=== PATIENT | female | born 1940 | race Caucasian/White ===

== ENCOUNTER 2023-12-31 04:28 | Day surgery (SDC) | payer OTHER, MEDICARE ==
[2023-12-27 18:56] VITALS: BMI 25.2
[2023-12-31] MEDS ORDERED: PROPOFOL 20 ML ONE (07:21)
[2023-12-31] MEDS ORDERED: KETOROLAC TROMETHAMINE 30 MG/1 ML VIAL ONE (07:22)
[2023-12-31] MEDS ORDERED: ONDANSETRON 4 MG/2 ML VIAL ONE (07:22)
[2023-12-31] MEDS ORDERED: DEXTROSE 5%-0.45% SALINE 1,000 ML IV SCH (07:45)
[2023-12-31] MEDS: ceFAZolin SODIUM 1 GM VIAL IVPB ONE (08:00)
[2023-12-31] MEDS: IOHEXOL 300 MG/ML INFUS..BTL IV ONE (08:25)
[2023-12-31] MEDS ORDERED: FENTANYL CITRATE/PF 50 MCG/ML VIAL ONE (08:48)
[2023-12-31] MEDS ORDERED: LACTATED RINGERS SOLUTION 1,000 ML IV SCH (09:00)
[2023-12-31 09:53] VITALS: RESP 20
[2023-12-31 09:54] LABS: HEMATOCRIT 25.9 % (32.4-45.2); HEMOGLOBIN 8.4 GM/dL (10.7-15.3); MCH 31.7 pg (25.7-33.7); MCHC 32.5 g/dl (32.0-36.0); MEAN CELL VOLUME 97.5 fl (80-96); MEAN PLT VOLUME 7.7 fl (7.5-11.1); PLATELET COUNT 221 10^3/uL (134-434); RBC 2.66 M/mm3 (3.60-5.2); RDW 13.4 % (11.6-15.6)
[2023-12-31 10:33] LABS: ANISOCYTOSIS 1+; MACROCYTOSIS 0
[2023-12-31 10:54] LABS: WHITE BLOOD COUNT 60.6 K/mm3 (4.0-10.0)
[2023-12-31 11:28] VITALS: BP 174/77; PULSE 79; TEMP 98.3
== END 2023-12-31 12:15 | disposition home or self-care (01) ==
LOC: JASU-SURG 04:28
PROVIDERS: ATTEND Urology
PROC: 0T768DZ Dilation of Right Ureter with Intraluminal Device, Via Natural or Artificial Opening Endoscopic (ICD-10-PCS; principal; 2023-12-31 07:30)
DX: N13.1 Hydronephrosis with ureteral stricture, not elsewhere classified (principal)
CPT/HCPCS: 36415; 76000-TC-FY; 85025; 94760; C1769; C2617